=== PATIENT | female | born 1990 | race Caucasian/White ===

== ENCOUNTER 2022-05-10 15:17 | Emergency (ER) | payer BC ==
[~2022-05-10] VITALS: Ht 167.6 cm; Wt 102.1 kg
[2022-05-10 15:42] VITALS: BP 126/73
--- NOTE | 2022-05-10 15:45 | NUR ---
Patient ambulated to bed 3 with steady gait.
--- NOTE | 2022-05-10 15:50 | NUR ---
32 y/o female bib self with c/o vomiting and diarrhea x today. Patient denies being around anyone who is sick. Patient believes she is lactose intolerant and had cheese pizza last night, symptoms started after eating pizza. Patient has 10/10 stomach pain when ambulating. Medical History: Hypothyroidism Medications: Levothyroxine NKDA
--- NOTE | 2022-05-10 16:00 | NUR ---
Dr. Cleveland at bedside evaluating patient.
[2022-05-10] MEDS ORDERED: BISMUTH SUBSALICYLATE 15 ML UDBTL PO STA (16:03)
[2022-05-10] MEDS ORDERED: DICYCLOMINE 10 MG CAP PO ONE (16:05)
[2022-05-10] MEDS ORDERED: ONDANSETRON 4 MG ODT PO ONE (16:05)
--- NOTE | 2022-05-10 16:08 | NUR ---
Lab at bedside.
[2022-05-10 16:15] LABS: BASOPHILS # (AUTO) 0.1 K/uL (0.00-0.22); BASOPHILS % (AUTO) 0.9 % (0.0-2.0); EOSINOPHILS # (AUTO) 0.1 K/uL (0-0.4); EOSINOPHILS % (AUTO) 1.3 % (0.0-4.0); HEMATOCRIT 40.9 % (36-48); LYMPHOCYTES # (AUTO) 2.8 K/uL (2.5-16.5); LYMPHOCYTES % (AUTO) 34.9 % (20.5-51.1); MEAN CORPUSCULAR HEMOGLOBIN 29 pg (27-31); MEAN CORPUSCULAR HGB CONC 34 g/dL (33-37); MEAN CORPUSCULAR VOLUME 83.7 fL (80-94); MONOCYTES # (AUTO) 0.8 K/uL (0.8-1.0); MONOCYTES % (AUTO) 9.8 % (1.7-9.3); NEUTROPHILS # (AUTO) 4.2 K/uL (1.8-7.7); NEUTROPHILS % (AUTO) 53.1 % (42.2-75.2); PLATELET COUNT (AUTO) 315 K/uL (140-450); RED BLOOD CELL COUNT(AUTO) 4.88 MIL/uL (4.20-5.40); RED CELL DISTRIBUTION WIDTH 12.9 % (11.6-13.7)
[2022-05-10 16:40] LABS: ALBUMIN 3.5 g/dL (3.4-5.0); ANION GAP 12.6 (8-16); CARBON DIOXIDE 25.3 mmol/L (21-32); CREATININE 0.4 mg/dL (0.6-1.3); POTASSIUM 3.9 mmol/L (3.5-5.1); TOTAL BILIRUBIN 0.4 mg/dL (0.0-1.0)
[2022-05-10] MEDS ORDERED: BISM262C53 PO (17:32)
[2022-05-10] MEDS ORDERED: BEN10 PO (17:32)
[2022-05-10] MEDS ORDERED: ONDA-188 SL (17:32)
[2022-05-10 17:50] VITALS: BP 121/76
--- NOTE | 2022-05-10 17:50 | NUR ---
Patient discharged with v/s stable. Written and verbal after care instructions given. Patient alert, oriented and verbalized understanding of instructions. Ambulatory with steady gait. All questions addressed prior to discharge. ID band removed. Patient advised to follow up with PMD. Rx of Bentyl, Pepto-Bismuth To-Go and Zofran given. Opportunity to ask questions provided and answered.
--- NOTE | 2022-05-10 17:51 | NUR ---
The patient's care was reviewed and supervised by Deisy Law RN.
== END 2022-05-10 17:50 | disposition home or self-care (01) ==
LOC: MED 15:17
DX: A08.4 Viral intestinal infection, unspecified (principal); E11.65 Type 2 diabetes mellitus with hyperglycemia; R03.0 Elevated blood-pressure reading, without diagnosis of hypertension; F17.210 Nicotine dependence, cigarettes, uncomplicated; E03.9 Hypothyroidism, unspecified; Z71.6 Tobacco abuse counseling
CPT/HCPCS: 36415; 80053; 81002; 81025; 83690; 85025; 99284; Q0162

== ENCOUNTER 2022-08-19 12:09 | Emergency (ER) | payer BC ==
[~2022-08-19] VITALS: Ht 167.6 cm; Wt 83.9 kg
[~2022-08-19 12:09] MED LIST: BEN10 PO; BISM262C53 PO; ONDA-188 SL
[2022-08-19 12:16] VITALS: BP 118/66
--- NOTE | 2022-08-19 12:45 | NUR ---
32Y/O FEMALE PRESENTS TO ED WITH C/O VAGINAL BLEEDING THIS MORNING. PT REPORTS SCANT LIGHT PINK BLOOD AFTER WIPING THIS MORNING. PT DENIES PAIN OR ABD CRAMPING. PENDING US AND FURTHER WORKUP.
[2022-08-19 12:52] LABS: APPEARANCE,URINE CLEAR (CLEAR); BILIRUBIN,URINE NEGATIVE (NEGATIVE); BLOOD, URINE NEGATIVE (NEGATIVE); COLOR,URINE YELLOW (YELLOW); LEUKOCYTE ESTERASE ,URINE NEGATIVE (NEGATIVE); NITRITE, URINE NEGATIVE (NEGATIVE); UGLUCOSE 1+ (NEGATIVE)
[2022-08-19 13:35] LABS: BASOPHILS % (AUTO) 0.5 % (0.0-2.0); EOSINOPHILS % (AUTO) 0.7 % (0.0-4.0); HEMATOCRIT 39.9 % (36-48); HEMOGLOBIN 13.9 g/dL (12.0-16.0); LYMPHOCYTES # (AUTO) 1.8 K/uL (2.5-16.5); LYMPHOCYTES % (AUTO) 25.4 % (20.5-51.1); MEAN CORPUSCULAR HEMOGLOBIN 30 pg (27-31); MEAN CORPUSCULAR HGB CONC 35 g/dL (33-37); MEAN CORPUSCULAR VOLUME 84.7 fL (80-94); MONOCYTES # (AUTO) 0.7 K/uL (0.8-1.0); MONOCYTES % (AUTO) 9.4 % (1.7-9.3); NEUTROPHILS # (AUTO) 4.6 K/uL (1.8-7.7); PLATELET COUNT (AUTO) 303 K/uL (140-450); RED BLOOD CELL COUNT(AUTO) 4.71 MIL/uL (4.20-5.40); RED CELL DISTRIBUTION WIDTH 12.6 % (11.6-13.7); WHITE BLOOD COUNT (AUTO) 7.2 K/uL (4.8-10.8)
--- NOTE | 2022-08-19 14:30 | NUR ---
Patient discharged with v/s stable. Written and verbal after care instructions ABOUT VAGINAL BLEEDING DURING given and explained. Patient verbalized understanding. Ambulatory with steady gait. All questions addressed prior to discharge. Advised to follow up with PMD.
== END 2022-08-19 14:32 | disposition home or self-care (01) ==
LOC: MED 12:09
DX: O20.0 Threatened abortion (principal); Z3A.08 8 weeks gestation of pregnancy; Z79.899 Other long term (current) drug therapy
CPT/HCPCS: 36415; 76817; 81003; 81025; 84702; 85025; 86900; 86901; 99284; Q0092

== ENCOUNTER 2024-02-11 12:41 | Emergency (ER) | payer BC, OTHER ==
[~2024-02-11] VITALS: Ht 165.1 cm; Wt 103.9 kg
[2024-02-11 12:44] VITALS: BP 129/84; PULSE 101; RESP 18; TEMP 97.7; O2SAT 98
[2024-02-11] MEDS: DEXAMETHASONE 10 MG/ML VIAL IM ONE (14:17)
[2024-02-11] MEDS ORDERED: BENZ100C6 PO (14:19)
[2024-02-11] MEDS ORDERED: BENZ-256 MM (14:19)
[2024-02-11 14:24] VITALS: BP 122/82; PULSE 88; RESP 16; TEMP 98; O2SAT 99
== END 2024-02-11 14:24 | disposition home or self-care (01) ==
LOC: MED 12:41
DX: J06.9 Acute upper respiratory infection, unspecified (principal); Z79.899 Other long term (current) drug therapy
CPT/HCPCS: 71045; 96372; 99283; J1100